=== PATIENT | female | born 1925 | race Caucasian/White ===

== ENCOUNTER 2016-09-23 22:20 | Inpatient (IN) | payer MEDICARE, MEDICAID ==
[~2016-09-23] VITALS: Ht 165.1 cm; Wt 49.1 kg
[~2016-09-23 22:20] MED LIST: BACITRACIN 50,000 UNITS INJ IRRIG ONE; DEXAMETHASONE 4 MG/ML VIAL IV ONE; FENTANYL 100 MCG/2 ML AMP IV ONE; GLYCOPYRROLATE 0.2 MG/ML VIAL IV ONE; LIDOCAINE 2% SYR 5 ML IV ONE; NEOSTIGMINE 10 MG/10 ML VIAL IV ONE; ONDANSETRON 4 MG VIAL IV PUSH ONE; PROPOFOL 20 ML VIAL IV ONE; ROCURONIUM 50 MG VIAL IV ONE
[2016-09-23 22:47] VITALS: BP_SYST 154; RESP 16; TEMP 97.5; BMI 16.8
[2016-09-23 23:00] VITALS: RESP 18
[2016-09-23] MEDS ORDERED: LACT RINGERS 1,000 ML IV SCH (23:40)
[2016-09-23] MEDS ORDERED: ONDANSETRON 4 MG VIAL IV PRN (23:40)
[2016-09-23] MEDS ORDERED: SALINE FLUSH 10 ML FLUSH PRN (23:40)
[2016-09-24] VITALS (17 sets, daily range): BP systolic 104–164; RESP 11–18; TEMP 97.2–98.9; Ht 165.1 cm; Wt 49.1 kg
[2016-09-24] MEDS: MORPHINE 2 MG/ML SYR IV PRN ×2 (00:46→10:07)
[2016-09-24] MEDS ORDERED: CEFAZOLIN 2,000 MG in SODIUM CHLORIDE 0.9% 100 ML IV ONE (07:15)
[2016-09-24] MEDS ORDERED: ACETAMINOPHEN 500 MG TAB PO PRN (07:55)
[2016-09-24] MEDS: LEVOTHYROXINE 0.025 MG TAB PO SCH (08:03)
[2016-09-24] MEDS: AMIODARONE 200 MG TAB PO SCH (09:00)
[2016-09-24] MEDS: CALCIUM CARB/VIT D3 600 MG TAB PO SCH ×2 (09:00→20:37)
[2016-09-24] MEDS: Furosemide 40 MG TAB PO SCH (09:00)
[2016-09-24] MEDS ORDERED: MIDAZOLAM 2 MG/2 ML INJ IV ONE (09:25)
[2016-09-24] MEDS ORDERED: GLYCOPYRROLATE 0.2 MG/ML VIAL IV ONE (09:25)
[2016-09-24] MEDS: METOPROLOL XL 50 MG TAB PO SCH (10:04)
[2016-09-24] MEDS: SODIUM CHLORIDE 0.9% FLUSH BAG 500 ML IV SCH (10:57)
[2016-09-24] MEDS: SALINE FLUSH 10 ML FLUSH SCH ×2 (10:58→20:00)
[2016-09-24] MEDS ORDERED: DILAUDID 1 MG/ML AMP IV PRN (13:10)
[2016-09-24] MEDS ORDERED: MEPERIDINE 25 MG/ML IV PRN (13:10)
[2016-09-24] MEDS ORDERED: ONDANSETRON 4 MG VIAL IV PRN ×2 (13:10→14:10)
[2016-09-24] MEDS ORDERED: OXYCODONE 5 MG TAB PO PRN (13:10)
[2016-09-24] MEDS ORDERED: MORPHINE 4 MG/ML SYR IV PRN ×2 (13:10→14:10)
[2016-09-24] MEDS ORDERED: MORPHINE 2 MG/ML SYR IV PRN ×2 (13:10→14:10)
[2016-09-24] MEDS ORDERED: ONDANSETRON 4 MG TAB PO PRN (14:10)
[2016-09-24] MEDS ORDERED: SALINE FLUSH 10 ML FLUSH PRN (14:10)
[2016-09-24] MEDS ORDERED: D5-1/2-NS W/KCL 20MEQ/L 1,000 ML IV SCH (14:10)
[2016-09-24] MEDS ORDERED: MAG HYDROX 30 ML UDC PO PRN (14:10)
[2016-09-24] MEDS ORDERED: SALINE FLUSH 10 ML FLUSH SCH (20:00)
[2016-09-24] MEDS: CEFAZOLIN 2,000 MG in SODIUM CHLORIDE 0.9% 100 ML IV SCH (20:37)
[2016-09-24] MEDS: DOCUSATE SOD 100 MG CAP PO SCH (20:37)
[2016-09-25] VITALS (8 sets, daily range): BP systolic 86–128; RESP 16–18; TEMP 97.1–98.2
[2016-09-25] MEDS: CEFAZOLIN 2,000 MG in SODIUM CHLORIDE 0.9% 100 ML IV SCH ×3 (00:12→12:25)
[2016-09-25] MEDS: SODIUM CHLORIDE 0.9% FLUSH BAG 500 ML IV SCH (05:52)
[2016-09-25] MEDS ORDERED: SODIUM CHLORIDE 0.9% FLUSH BAG 500 ML IV SCH (06:00)
[2016-09-25] MEDS ORDERED: ENOXAPARIN 30 MG/0.3 ML SYR SUBQ SCH (06:00)
[2016-09-25] MEDS: LEVOTHYROXINE 0.025 MG TAB PO SCH (06:01)
[2016-09-25] MEDS: Furosemide 40 MG TAB PO SCH (08:12)
[2016-09-25] MEDS: METOPROLOL XL 50 MG TAB PO SCH (08:12)
[2016-09-25] MEDS: SENNA 8.6 MG TAB PO SCH ×2 (08:12→20:29)
[2016-09-25] MEDS: POLYETHYLENE GLYCOL 17 GM PACKET PO SCH (08:12)
[2016-09-25] MEDS: CALCIUM CARB/VIT D3 600 MG TAB PO SCH ×2 (08:12→20:29)
[2016-09-25] MEDS: MAG HYDROX 30 ML UDC PO SCH (08:12)
[2016-09-25] MEDS: AMIODARONE 200 MG TAB PO SCH (08:12)
[2016-09-25] MEDS: SALINE FLUSH 10 ML FLUSH SCH ×2 (08:45→20:29)
[2016-09-25] MEDS ORDERED: MISSING DOSE XX ONE ×3 (08:45→08:55)
[2016-09-25] MEDS: MULTIVITS/MINERALS (THERAGRAN M) TAB PO SCH (09:24)
[2016-09-25] MEDS: DOCUSATE SOD 100 MG CAP PO SCH ×2 (09:24→20:29)
[2016-09-26] MEDS ORDERED: BISACODYL 10 MG SUPP RECTAL PRN
[2016-09-26] MEDS ORDERED: FLEET ENEMA 132 ML BTL RECTAL PRN
[2016-09-26 03:49] VITALS: BP_SYST 123; RESP 18; TEMP 98.2
[2016-09-26] MEDS: SODIUM CHLORIDE 0.9% FLUSH BAG 500 ML IV SCH (05:58)
[2016-09-26] MEDS: LEVOTHYROXINE 0.025 MG TAB PO SCH (06:39)
[2016-09-26 07:35] VITALS: BP_SYST 127; RESP 16; TEMP 98.2
[2016-09-26] MEDS: SALINE FLUSH 10 ML FLUSH SCH ×2 (08:43→21:41)
[2016-09-26] MEDS: DOCUSATE SOD 100 MG CAP PO SCH ×2 (08:43→21:41)
[2016-09-26] MEDS: APIXABAN 2.5 MG TAB PO SCH ×2 (08:44→21:41)
[2016-09-26] MEDS: METOPROLOL XL 50 MG TAB PO SCH (08:44)
[2016-09-26] MEDS: AMIODARONE 200 MG TAB PO SCH (08:44)
[2016-09-26] MEDS: Furosemide 40 MG TAB PO SCH (08:44)
[2016-09-26] MEDS: MAG HYDROX 30 ML UDC PO SCH (08:44)
[2016-09-26] MEDS: POLYETHYLENE GLYCOL 17 GM PACKET PO SCH (08:44)
[2016-09-26] MEDS: CALCIUM CARB/VIT D3 600 MG TAB PO SCH ×2 (08:44→21:41)
[2016-09-26] MEDS: MULTIVITS/MINERALS (THERAGRAN M) TAB PO SCH (08:45)
[2016-09-26] MEDS: SENNA 8.6 MG TAB PO SCH ×2 (08:45→21:41)
[2016-09-26 12:50] VITALS: BP_SYST 108; RESP 16; TEMP 98.9
[2016-09-26 15:10] VITALS: BP_SYST 111; RESP 16; TEMP 98.3
[2016-09-26 19:14] VITALS: BP_SYST 109; RESP 16; TEMP 98.3
[2016-09-26 23:07] VITALS: BP_SYST 117; RESP 18; TEMP 98.8
[2016-09-27 03:45] VITALS: BP_SYST 132; RESP 16; TEMP 98.2
[2016-09-27] MEDS: SODIUM CHLORIDE 0.9% FLUSH BAG 500 ML IV SCH (05:57)
[2016-09-27] MEDS: LEVOTHYROXINE 0.025 MG TAB PO SCH (06:10)
[2016-09-27] MEDS: APIXABAN 2.5 MG TAB PO SCH (09:20)
[2016-09-27] MEDS: MULTIVITS/MINERALS (THERAGRAN M) TAB PO SCH (09:20)
[2016-09-27] MEDS: MAG HYDROX 30 ML UDC PO SCH (09:20)
[2016-09-27] MEDS: SALINE FLUSH 10 ML FLUSH SCH (09:20)
[2016-09-27] MEDS: METOPROLOL XL 50 MG TAB PO SCH (09:20)
[2016-09-27] MEDS: SENNA 8.6 MG TAB PO SCH (09:20)
[2016-09-27] MEDS: Furosemide 40 MG TAB PO SCH (09:20)
[2016-09-27] MEDS: AMIODARONE 200 MG TAB PO SCH (09:20)
[2016-09-27] MEDS: POLYETHYLENE GLYCOL 17 GM PACKET PO SCH (09:20)
[2016-09-27] MEDS: CALCIUM CARB/VIT D3 600 MG TAB PO SCH (09:20)
[2016-09-27] MEDS: DOCUSATE SOD 100 MG CAP PO SCH (09:20)
[2016-09-27 09:30] VITALS: BP_SYST 166; RESP 18; TEMP 97.8
[2016-09-27 11:03] VITALS: BP_SYST 132; RESP 18; TEMP 97.6
== END 2016-09-27 13:11 | DRG 481 ==
LOC: ENRESERVTM → ENRESERVDT → 2NO 23:13 → 5THE 09-24 18:15 → 2NO 09-27 07:06
PROVIDERS: ADMIT Internal Medicine; ATTEND Internal Medicine
PROC: 0QH704Z Insertion of Internal Fixation Device into Left Upper Femur, Open Approach (ICD-10-PCS; principal; 2016-09-24 13:19)
DX: S72.002A Fracture of unspecified part of neck of left femur, initial encounter for closed fracture (principal); D62 Acute posthemorrhagic anemia; I48.91 Unspecified atrial fibrillation; I50.9 Heart failure, unspecified; W07.XXXA Fall from chair, initial encounter; Y92.000 Kitchen of unspecified non-institutional (private) residence as the place of occurrence of the external cause; Z79.01 Long term (current) use of anticoagulants; I35.0 Nonrheumatic aortic (valve) stenosis; E03.9 Hypothyroidism, unspecified
CPT/HCPCS: 76000; 80048; 85025; 85610; 85730; 93005; 94799; 99222; 99232; 99233; 99239